=== PATIENT | male | born 1950 | race Caucasian/White ===

== ENCOUNTER 2017-07-13 17:50 | Observation (INO) | payer OTHER ==
[~2017-07-13] VITALS: Ht 180.3 cm; Wt 125.0 kg
[2017-07-13 17:51] VITALS: BP 194/100; PULSE 65; RESP 18; TEMP 97.8; O2SAT 96
[2017-07-13] MEDS ORDERED: PANT40TA3 PO (20:57)
[2017-07-13] MEDS ORDERED: SILD20TA11 PO (20:57)
[2017-07-13] MEDS ORDERED: POTA10CA PO (20:57)
[2017-07-13] MEDS ORDERED: ATOR80TA45 PO (20:57)
[2017-07-13] MEDS ORDERED: LEVO25TA4 PO (20:57)
[2017-07-13] MEDS ORDERED: SODIUM CHLORIDE 0.9% FLUSH 10 ML FLUSH IVF PRN (21:15)
[2017-07-13] MEDS ORDERED: HYDROmorphone HCL PF 2 MG/ML VIAL IV PUSH ONE (21:15)
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
[2017-07-13 21:30] LABS: AUTOMATED NEUTROPHIL # 5.8 TH/MM3 (1.8-7.7); BASOPHIL # 0.1 TH/MM3 (0-0.2); BASOPHIL % 0.8 % (0.0-2.0); EOSINOPHIL # 0.1 TH/MM3 (0-0.4); EOSINOPHIL % 1.5 % (0.0-4.0); HEMATOCRIT 42.4 % (39.0-51.0); HEMOGLOBIN 14.5 GM/DL (13.0-17.0); LYMPH % 25.5 % (9.0-44.0); LYMPHOCYTE # 2.3 TH/MM3 (1.0-4.8); MEAN CELL VOLUME 86.5 FL (80.0-100.0); MEAN CORPUSCULAR HEMOGLOBIN 29.7 PG (27.0-34.0); MEAN CORPUSCULAR HGB CONC 34.3 % (32.0-36.0); MEAN PLATELET VOLUME 7.8 FL (7.0-11.0); MONO % 7.4 % (0.0-8.0); MONOCYTE # 0.7 TH/MM3 (0-0.9); NEUT % 64.8 % (16.0-70.0); PLATELET COUNT 205 TH/MM3 (150-450); RED CELL DISTRIBUTION WIDTH 13.3 % (11.6-17.2)
[2017-07-13 21:31] LABS: INTERNATIONAL NORMALIZED RATIO 1.1 RATIO; PROTHROMBIN TIME - PATIENT 11.1 SEC (9.8-11.6)
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
[2017-07-13 21:42] LABS: ALBUMIN 3.6 GM/DL (3.4-5.0); ALT (GPT) 23 U/L (12-78); AST (GOT) 16 U/L (15-37); BICARBONATE 30.2 MEQ/L (21.0-32.0); BLOOD UREA NITROGEN 20 MG/DL (7-18); CALCIUM 9.1 MG/DL (8.5-10.1); CHLORIDE 102 MEQ/L (98-107); CREATININE 1.56 MG/DL (0.60-1.30); GLOMERULAR FILTRATION RATE 45 ML/MIN (>89); GLUCOSE,RANDOM 82 MG/DL (74-106); SODIUM (NA) 139 MEQ/L (136-145)
[2017-07-13 21:47] LABS: ALKALINE PHOSPHATASE 196 U/L (45-117); TOTAL BILIRUBIN ADULT 0.9 MG/DL (0.2-1.0); TOTAL PROTEIN 7.3 GM/DL (6.4-8.2); TROPONIN I LESS THAN 0.02 NG/ML (0.02-0.05)
[2017-07-13 22:15] VITALS: BP 193/107; PULSE 80; RESP 16; O2SAT 98
[2017-07-13] MEDS ORDERED: IOHEXOL 350 MG/ML 10 ML VIAL (for RAD DIAG) IVCONTRAST ONE (22:16)
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
[2017-07-13] MEDS ORDERED: ASPIRIN 81 MG CHEW TAB PO ONE (23:15)
[2017-07-13] MEDS ORDERED: LABETALOL HCL 100 MG/20 ML VIAL IV PUSH ONE (23:15)
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
[2017-07-13] MEDS ORDERED: HYDROmorphone HCL PF 1 MG/ML VIAL IV PUSH PRN (23:45)
[2017-07-13] MEDS ORDERED: NITROGLYCERIN 2% OINT 1 GM PACKET TOPICAL PRN (23:45)
[2017-07-13] MEDS ORDERED: SODIUM CHLORIDE 0.9% FLUSH 10 ML FLUSH IV FLUSH PRN (23:45)
[2017-07-13] MEDS ORDERED: ONDANSETRON HCL 4 MG/2 ML VIAL IVP PRN (23:45)
[2017-07-13] MEDS ORDERED: HYDROmorphone HCL PF 2 MG/ML VIAL IV PRN (23:45)
[2017-07-13] MEDS ORDERED: ACETAMINOPHEN 325 MG TAB PO PRN (23:45)
[2017-07-13] MEDS ORDERED: SENNOSIDES 8.6 MG TAB PO PRN (23:45)
[2017-07-13] MEDS ORDERED: MAGNESIUM HYDROXIDE SUSP 30 ML CUP PO PRN (23:45)
[2017-07-13] MEDS ORDERED: LACTULOSE SYRUP 20 GM/30 ML CUP PO PRN (23:45)
[2017-07-13] MEDS ORDERED: DIAZEPAM 5 MG TAB PO PRN (23:45)
[2017-07-13] MEDS ORDERED: BISACODYL 10 MG SUPP RECTAL PRN (23:45)
[2017-07-13] MEDS ORDERED: ACETAMINOPHEN/HYDROcodone 325 MG/5 MG TAB PO PRN (23:45)
[2017-07-14] VITALS (10 sets, daily range): BP systolic 125–187; BP diastolic 68–98; PULSE 60–87; RESP 16–20; TEMP 96.1–98.3; O2SAT 92–98
[2017-07-14 00:07] LABS: BILIRUBIN, URINE NEG (NEG); BLOOD, URINE TRACE (NEG); GLUCOSE,URINE NEG (NEG); KETONE, URINE TRACE mg/dL (NEG); MUCUS URINE FEW /lpf (OCC); NITRITE,URINE NEG (NEG); PH, URINE 6.5 (5.0-8.5); URINE COLOR LIGHT-YELLOW (YELLW/STRAW); URINE LEUKOCYTE ESTERASE NEG (NEG)
[2017-07-14] MEDS ORDERED: hydrALAZINE HCL 20 MG/ML VIAL IV PUSH ONE (00:30)
[2017-07-14] MEDS: SODIUM CHLOR 0.9% 1000 ML INJ 1,000 ML IV SCH ×2 (00:53→08:22)
[2017-07-14 06:42] LABS: MAGNESIUM 1.9 MG/DL (1.5-2.5)
[2017-07-14 06:44] LABS: TROPONIN I LESS THAN 0.02 NG/ML (0.02-0.05)
[2017-07-14] MEDS: LEVOTHYROXINE SODIUM 25 MCG TAB PO SCH (06:56)
[2017-07-14] MEDS: DOCUSATE SODIUM 50 MG/SENNA 8.6 MG TAB PO SCH ×2 (08:20→11:04)
[2017-07-14] MEDS: SODIUM CHLORIDE 0.9% FLUSH 10 ML FLUSH IV FLUSH SCH ×2 (08:20→21:57)
[2017-07-14] MEDS: ASPIRIN EC 81 MG TABEC PO SCH (08:21)
[2017-07-14] MEDS: PANTOPRAZOLE SOD 40 MG DELAYED RELEASE TAB PO SCH (08:21)
[2017-07-14] MEDS: HEPARIN SODIUM - SQ 10,000 UNITS/ML VIAL SQ SCH ×2 (08:22→21:58)
[2017-07-14] MEDS ORDERED: SILDENAFIL CITRATE 20 MG TAB PO SCH (09:00)
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
[2017-07-14] MEDS ORDERED: AMLO5TAB2 PO (09:56)
[2017-07-14] MEDS ORDERED: MAGNESIUM OXIDE 400 MG TAB PO ONE (11:00)
[2017-07-14] MEDS ORDERED: METOPROLOL TARTRATE 25 MG TAB PO ONE (11:00)
[2017-07-14] MEDS: amLODIPine BESYLATE 5 MG TAB PO SCH (11:03)
[2017-07-14 13:13] LABS: ALBUMIN 2.9 GM/DL (3.4-5.0); AST (GOT) 13 U/L (15-37); BLOOD UREA NITROGEN 22 MG/DL (7-18); CALCIUM 8.7 MG/DL (8.5-10.1); CHLORIDE 105 MEQ/L (98-107); CREATININE 1.42 MG/DL (0.60-1.30); GLOMERULAR FILTRATION RATE 50 ML/MIN (>89); GLUCOSE,RANDOM 106 MG/DL (74-106); SODIUM (NA) 141 MEQ/L (136-145)
[2017-07-14 13:15] LABS: ALT (GPT) 20 U/L (12-78)
[2017-07-14 13:25] LABS: ALKALINE PHOSPHATASE 168 U/L (45-117); TOTAL BILIRUBIN ADULT 0.7 MG/DL (0.2-1.0); TOTAL PROTEIN 6.2 GM/DL (6.4-8.2); TROPONIN I LESS THAN 0.02 NG/ML (0.02-0.05)
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
--- NOTE | 2017-07-14 16:48 | RADRPT ---
EXAM DATE/TIME: 07/14/2017 15:11 [place] COMPARISON: No previous studies available for comparison. INDICATIONS : Carotid thrombosis. MEDICAL HISTORY : Hypothyroidism. Hypercholesterolemia. Hypertension. SURGICAL HISTORY : Cardiac surgery. Orthopedic surgery. ENCOUNTER: Initial ACUITY: 1 day PAIN SCORE: 10 LOCATION: Bilateral neck PEAK SYSTOLIC VELOCITIES (cm/sec): ICA/CCA RATIO: Right: 1.3 Left: 0.8 ICA: Right: 73 Left: 79 CCA: Right: 87 Left: 103 ECA: Right: 72 Left: 113 VERTEBRAL: Right: 37 antegrade Left: 36 antegrade Elevated flow velocities and ICA/CCA ratios have been found to correlate with increased degrees of vessel stenosis, calculated as percentage of diameter relative to a normal segment of distal ICA/CCA FINDINGS: RIGHT CAROTID: No significant stenosis is visualized. The waveforms are within normal limits. LEFT CAROTID: No significant stenosis is visualized. The waveforms are within normal limits. VERTEBRAL ARTERIES: Antegrade flow is seen in both vertebral arteries. MISCELLANEOUS: None. CONCLUSION: Normal hemodynamic profile bilateral carotids. Marky Moon MD on July 14, 2017 at 16:44 Board Certified Radiologist. This report was verified electronically.
[2017-07-14] MEDS ORDERED: ATORVASTATIN 80 MG TAB PO SCH (21:00)
[2017-07-14] MEDS: METOPROLOL TARTRATE 25 MG TAB PO SCH (21:57)
--- NOTE | 2017-07-14 23:38 | EKG ---
Date Performed: 07/13/2017 Time Performed: 23:02:02 PTAGE: 67 years EKG: Sinus rhythm WITH FREQUENT VENTRICULAR PREMATURE COMPLEXES MARKED LEFT AXIS DEVIATION MODERATE VOLTAGE CRITERIA F OR LVH, CONSIDER NORMAL VARIANT NONSPECIFIC T-WAVE ABNORMALITY ABNORMAL ECG PREVIOUS TRACING : 07/13/2017 18.12 Since the prior tracing, there has been no significant dave DOCTOR: Aydin Lino Interpretating Date/Time 07/14/2017 23:37:46
--- NOTE | 2017-07-14 23:51 | EKG ---
Date Performed: 07/13/2017 Time Performed: 18:12:51 PTAGE: 67 years EKG: Sinus rhythm WITH FREQUENT VENTRICULAR PREMATURE COMPLEXES MODERATE VOLTAGE CRITERIA FOR LVH, CONSIDER NORMAL FRANCIS IANT POSSIBLE SEPTAL MYOCARDIAL INFARCTION ABNORMAL ECG NO PREVIOUS TRACING DOCTOR: Aydin Lino Interpretating Date/Time 07/14/2017 23:50:28
--- NOTE | 2017-07-15 00:50 | EKG ---
Date Performed: 07/14/2017 Time Performed: 09:37:17 PTAGE: 67 years EKG: Sinus rhythm WITH FREQUENT VENTRICULAR PREMATURE COMPLEXES BORDERLINE LEFT AXIS DEVIATION MODERATE VOLTAGE CRITER IA FOR LVH, CONSIDER NORMAL VARIANT NONSPECIFIC T-WAVE ABNORMALITY ABNORMAL RHYTHM ECG PREVIOUS TRACING : 07/14/2017 03.37 Since the prior tracing, there has been no significant dave Royal Madina DOCTOR: Aydin Lino Interpretating Date/Time 07/15/2017 00:49:02
[2017-07-15 04:39] VITALS: BP 120/68; PULSE 72; RESP 18; TEMP 98.1; O2SAT 97
[2017-07-15] MEDS: SODIUM CHLOR 0.9% 1000 ML INJ 1,000 ML IV SCH ×2 (05:45→08:57)
[2017-07-15] MEDS: LEVOTHYROXINE SODIUM 25 MCG TAB PO SCH (07:51)
[2017-07-15 08:09] VITALS: PULSE 66
[2017-07-15] MEDS: SODIUM CHLORIDE 0.9% FLUSH 10 ML FLUSH IV FLUSH SCH (08:57)
[2017-07-15] MEDS: amLODIPine BESYLATE 5 MG TAB PO SCH (08:58)
[2017-07-15] MEDS: METOPROLOL TARTRATE 25 MG TAB PO SCH (08:58)
[2017-07-15] MEDS: ASPIRIN EC 81 MG TABEC PO SCH (08:59)
[2017-07-15] MEDS: PANTOPRAZOLE SOD 40 MG DELAYED RELEASE TAB PO SCH (08:59)
[2017-07-15] MEDS: DOCUSATE SODIUM 50 MG/SENNA 8.6 MG TAB PO SCH (08:59)
[2017-07-15] MEDS: HEPARIN SODIUM - SQ 10,000 UNITS/ML VIAL SQ SCH (08:59)
[2017-07-15 09:08] VITALS: BP 126/73; PULSE 70; RESP 18; TEMP 97.5; O2SAT 59; O2SAT 95
--- NOTE | 2017-07-15 09:20 | EKG ---
Date Performed: 07/14/2017 Time Performed: 03:37:53 PTAGE: 67 years EKG: Sinus rhythm WITH OCCASIONAL VENTRICULAR PREMATURE COMPLEXES POSSIBLE LEFT ATRIAL ENLARGEMENT BORDERLINE LEFT AXI S DEVIATION POSSIBLE LEFT VENTRICULAR HYPERTROPHY NONSPECIFIC T-WAVE ABNORMALITY ABNORMAL ECG PREVIOUS TRACING : 07/13/2017 18.12 Compared to prior tracing, less frequent PVCs DOCTOR: Aydin Lino Interpretating Date/Time 07/15/2017 09:19:35
[2017-07-15] MEDS ORDERED: METO25TA3 PO (09:41)
[2017-07-15] MEDS ORDERED: ECASA81 PO (09:41)
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
--- NOTE | 2017-07-15 10:53 | PD.CAR.PN ---
CVT Progress Note Subjective/Hospital Course: 07/15/2017 Patient now asymptomatic as far as any cardiac issues Bilateral good breath sounds Discussed care with medicine JOSÉ MIGUEL de jesus. Aortic thrombus is most likely quite old and adherent to the vessel. Patient may have a full workup at home including cardiac echo and probably repeat CT scan in about 3 months to to reevaluate the aortic arch for any more deposits but as far as the care right now is concerned patient from my point can be discharged anytime. Objective: Vital Signs Date Time Temp Pulse Resp B/P (MAP) Pulse Ox O2 Delivery O2 Flow Rate FiO2 07/15/17 09:08 97.5 70 18 126/73 (90) 59 07/15/17 08:09 66 07/15/17 04:39 98.1 72 18 120/68 (85) 97 07/14/17 23:36 98.1 71 17 125/68 (87) 97 07/14/17 20:27 98.2 76 17 129/86 (100) 96 07/14/17 13:34 22 Result Diagram: 07/13/170 07/14/17 1210 Collin Mcmanus MD Jul 15, 2017 10:53
--- NOTE | 2017-07-15 11:41 | OTSOAPIP ---
TIME SESSION COMPLETED: 900 AM TREATMENT TIME: 0 MINS. CHART REVIEWED. S: PAIN: 0/10 O: PER PHYSICAL THERAPY REPORT INDEPENDENT. MET WITH PATIENT AND NO FUNCTIONAL DEFICITS. A: PATIENT RESPONSE TO TREATMENT: NO FUNCTIONAL DEFICITS PER PT, RN AND PATIENT P: DC OT EVALUATION _X_ PT WAS INSTRUCTED TO NOT GET OUT OF BED OR CHAIR WITHOUT ASSISTANCE. CALL AMARAL WAS LEFT WITHIN REACH. DISABILITIES ELEMENTS SCORE - SELF-FEEDING __X__ 4 = INDEPENDENT: EATS FROM A DISH AND DRINKS FROM A CUP OR GLASS PRESENTED IN THE CUSTOMARY MANNER ON TABLE OR TRAY. USES ORDINARY KNIFE, FORK, AND SPOON. ____ 3 = INDEPENDENT WITH DEVICE: USES AN ADAPTIVE OR ASSISTING DEVICE SUCH A STRAW, SPORK, OR ROCKING KNIFE OR REQUIRES MORE THAN A REASONABLE TIME TO EAT. ____ 2 = DEPENDENT - PARTIAL HELP REQUIRED: PERFORMS HALF OR MORE OF FEEDING TASKS BUT REQUIRES SUPERVISION (E.G., STANDBY, CUEING, OR COAXING), SETUP (APPLICATION OF ORTHOTICS), OR OTHER HELP. ____ 1 = DEPENDENT - TOTAL HELP REQUIRED: EITHER PERFORMS LESS THAN HALF OF FEEDING TASKS, OR DOES NOT EAT OR DRINK FULL MEALS BY MOUTH AND RELIES AT LEAST IN PART ON OTHER MEANS OF ALIMENTATION, SUCH PARENTERAL OR GASTROSTOMY FEEDINGS. INTERDISCIPLINARY COMMUNICATION:ELECTRONIC MEDICAL RECORD, RN AND PT DISCHARGE RECOMMENDATION/ATTENTION CASE MANAGEMENT: OT SIGNS OFF Therapist: Karen Levy OTR/L Signature on file
[2017-07-15 11:53] VITALS: O2SAT 95
--- NOTE | 2017-07-15 20:34 | ECHRPT ---
Indication: CONCLUSIONS Normal left ventricular size. The left ventricular systolic function is normal with an estimated ejection fraction in the range of 55-60%. Inverted E:A wave ratio at mitral valve leaflets indicating of diastolic dysfunction realxation type [id number] mitral valve regurgitation. No aortic valve regurgitation. BP: / HR: Rhythm: MEASUREMENTS (Male / Female) Normal Values Technical Quality:Fair 2D ECHO LV Diastolic Diameter PLAX 5.7 cm 4.2 - 5.9 / 3.9 - 5.3 cm LV Systolic Diameter PLAX 4.2 cm IVS Diastolic Thickness 1.2 cm 0.6 - 1.0 / 0.6 - 0.9 cm LVPW Diastolic Thickness 1.0 cm 0.6 - 1.0 / 0.6 - 0.9 cm LV Relative Wall Thickness 0.4 RV Internal Dim ED PLAX 3.3 cm M-MODE Aortic Root Diameter MM 3.4 cm LA Systolic Diameter MM 3.8 cm LA Ao Ratio MM 1.1 AV Cusp Separation MM 2.4 cm DOPPLER TR Peak Velocity 144.0 cm/s TR Peak Gradient 8.3 mmHg Right Atrial Pressure 10.0 mmHg Pulmonary Artery Systolic Pressu 18.3 mmHg Right Ventricular Systolic Press 18.3 mmHg FINDINGS LEFT VENTRICLE Normal left ventricular size. The left ventricular systolic function is normal with an estimated ejection fraction in the range of 55-60%. RIGHT VENTRICLE Normal right ventricular size and systolic function. LEFT ATRIUM The left atrial size is normal. RIGHT ATRIUM The right atrial size is normal. ATRIAL SEPTUM Normal atrial septal thickness without atrial level shunting by limited color doppler interrogation. AORTA The aortic root and proximal ascending aorta are normal in size on limited imaging. MITRAL VALVE Structurally normal mitral valve. [id number] mitral valve regurgitation. E:A. AORTIC VALVE Trileaflet aortic valve. No aortic valve regurgitation. TRICUSPID VALVE Structurally normal tricuspid valve. No tricuspid valve stenosis or regurgitation. PULMONARY VALVE No pulmonary valve regurgitation or stenosis. VESSELS The inferior vena cava is normal in size. PERICARDIUM No pericardial effusion. Mariama Saul MD Edited by: [email or web address] (Electronically Signed) Final Date:14 July 2017 12:59 Amended: 15 July 2017 20:33
== END 2017-07-15 13:02 | disposition home or self-care (01) ==
LOC: NEPD 17:50 → NEDA 23:24 → NEPHCDU 07-14 02:01
PROVIDERS: ADMIT Hospitalist; ATTEND Hospitalist
DX: I74.10 Embolism and thrombosis of unspecified parts of aorta (principal); R07.9 Chest pain, unspecified; I48.91 Unspecified atrial fibrillation; I16.0 Hypertensive urgency; I49.3 Ventricular premature depolarization; R94.31 Abnormal electrocardiogram [ECG] [EKG]; I10 Essential (primary) hypertension; J98.11 Atelectasis; N28.1 Cyst of kidney, acquired; V43.52XA Car driver injured in collision with other type car in traffic accident, initial encounter; Y92.410 Unspecified street and highway as the place of occurrence of the external cause
CPT/HCPCS: 70450; 71045; 71260; 72125; 72129; 72132; 74177; 80053; 80307; 81001; 82550; 83735; 84484; 85025; 85610; 85730; 86850; 86900; 86901; 93005; 93306; 93880; 96361; 96372; 96374; 96375; 96376; 97161; 99285; G0378; G8987; G8988; J0360; J1170; J1644; J2405; J7030; Q9967